=== PATIENT | female | born 1995 | race Caucasian/White ===

== ENCOUNTER → 2019-03-29 | Outpatient (CLI) | payer BC, OTHER ==
--- NOTE | 2019-03-31 08:37 | DIREP ---
PROCEDURE:OBSTETRICAL ULTRASOUND, 2nd AND 3rd TRIMESTER TECHNIQUE:Transabdominal ultrasound of the pelvic contents was performed. COMPARISON:[facility], US, US OB 2 3TRI DETAILED TRANSABD, 03/29/2019, 04:04 PM. INDICATIONS:Z3A.20 IUP @ 20 WKS FINDINGS: NUMBER:Schneider. POSITION:Cephalic AMNIOTIC FLUID VOLUME:MOSHE - 14.7 cm PLACENTA:Anterior. No evidence of placenta previa. CERVIX:3.1 cm length. The cervix appears closed. HEART RATE:139 bpm BIPARIETAL DIAMETER:5.2 cm (21 W 4 D), 91.9 percentile HEAD CIRCUMFERENCE:19.3 cm (21 W 4 D), 86.4 percentile ABD CIRCUMFERENCE:17.1 cm (22 W 0 D), 89.6 percentile FEMUR LENGTH:3.5 cm (21 W 1 D), 64.1 percentile ESTIMATED WEIGHT:436 gm (0 lb, 15oz), 96 percentile ULTRASOUND GA:21 W 4 D ULTRASOUND SANTOS:August 05, 2019 CLINICAL GA: 20 W 3 D CLINICAL SANTOS: August 13, 2019 ANATOMY CEREBELLUM:2.2 cm NUCHAL FOLD:6 mm CISTERNA MAGNA:5 mm LATERAL CEREBRAL VENTRICLES:6 mm CHOROID PLEXUS:No abnormality demonstrated. MIDLINE FALX:Visualized. CAVUM SEPTUM PELLUCIDUM:Normal. SPINE:Limited by positioning. No definite defect demonstrated. HEART:4 chamber. UPPER LIP:Intact. STOMACH:Visualized. KIDNEYS:No hydronephrosis. BLADDER:Visualized. UMBILICAL CORD INSERTION:Normal. CORD VESSEL NUMBER:3 vessel EXTREMITIES:4 extremities demonstrated. CONCLUSION: 1. Single intrauterine corresponding to an estimated gestational age of approximately 21 weeks 4 days per biometrics. This does reflect a slight discrepancy from the reported clinical gestational age which is within the acceptable limits for normal anatomic variation for this stage of . Estimated weight of 436 g. cardiac activity detected at 139 beats per minute. 2. anatomic evaluation as discussed above. No anatomic abnormality is identified. Nuchal fold thickness is at the upper acceptable limits. 3. Cephalic presentation. Anterior placenta. No evidence of previa. Normal MOSHE. Dictated by: [facility] Physician on 03/31/2019 at 08:10 AM
== END | disposition home or self-care (01) ==
LOC: RAD 15:12
PROVIDERS: ATTEND Obstetrics & Gynecology
DX: Z34.82 Encounter for supervision of other normal pregnancy, second trimester (principal); Z3A.21 21 weeks gestation of pregnancy
CPT/HCPCS: 76805

== ENCOUNTER 2019-08-10 12:46 | Inpatient (IN) | payer OTHER ==
[2019-08-10 13:30] VITALS: BP 124/77
[2019-08-10] MEDS ORDERED: LACTATED RINGERS 1,000 ML ONE ×2 (14:14→22:15)
[2019-08-10] MEDS ORDERED: OXYTOCIN 30 UNIT/NS 500 ML 500 ML IV ONE (14:15)
--- NOTE | 2019-08-10 15:16 | PCM.HP ---
OB-Chief Complaint and HPI Date/Diagnosis Date: Aug 10, 2019 Time: 15:14 Admit Dx: (1) Decreased movement ICD Codes: O36.8190 - Decreased movements, unspecified trimester, not applicable or unspecified SNOMED: 224171703 (2) 39 weeks gestation of ICD Codes: Z3A.39 - 39 weeks gestation of SNOMED: 18292680 Chief Complaint/History(PI) : 4 Para: 3 EDC: Aug 13, 2019 Reason for admission: other (decreased FM) Indication for induction: other Past Family/Social History Blood Type: A+ Rubella: immune RPR/VDRL: Negative GBS Status: Negative HBsAG: Negative Provider Note: 24 y/o @ 39.4 presented to L&D with complaints of decreased FM. FHT Cat 1. I discussed delivery with pt secondary to term gestation and decreased FM. Pt stated she would be more comfortable with moving forward with delivery as she would not want to go home and be concerned about her babies health. -We discussed plan of care with Pitocin augmentation and AROM A/ 24 y/o @ 39.4 Decreased FM GBS neg P/ Pitocin AROM Pain management prn Expect OB EXAM Physical Exam Vital Signs Date Time Temp Pulse Resp B/P (MAP) Pulse Ox O2 Delivery O2 Flow Rate FiO2 08/10/19 13:30 98.6 78 18 124/77 (93) 99 Room Air LABS Laboratory Tests Test 08/10/19 15:11 HIV-1 Antibody NON-REACTIVE (NONREACTIVE) HIV-2 Antibody NON-REACTIVE (NONREACTIVE) ALLISON BONILLA DO Aug 10, 2019 15:16
[2019-08-10 15:20] LABS: BASOPHIL % 0.3 % (0.0-0.2); EOSINOPHIL % 0.1 % (0.0-5.0); LYMPHOCYTES # 1.6 10^3/uL (1.0-4.8); LYMPHOCYTES % 13.5 % (24.0-44.0); MONOCYTES # 0.6 10^3/uL (0.3-0.8); MONOCYTES % 4.9 % (5.0-12.0); NEUTROPHIL # 9.3 10^3/uL (1.8-7.7); NEUTROPHILS % 80.5 % (41.0-85.0); RED CELL DISTRIBUTION WIDTH 12.8 % (11.5-14.5)
[2019-08-10] MEDS: LACTATED RINGERS 1,000 ML IV SCH ×2 (15:25→22:36)
[2019-08-10] MEDS ORDERED: OXYTOCIN 30 UNIT/NS 500 ML 500 ML ONE (15:26)
[2019-08-10] MEDS ORDERED: PHENERGAN IV PRN (15:30)
[2019-08-10] MEDS ORDERED: BICITRA PO ONE (15:30)
[2019-08-10] MEDS ORDERED: DEMEROL IV PRN (15:30)
[2019-08-10] MEDS ORDERED: ZOFRAN 4 MG/2 ML VIAL IV PRN (15:30)
[2019-08-10] MEDS ORDERED: XYLOCAINE SQ PRN (15:30)
[2019-08-10] MEDS ORDERED: SUBLIMAZE IV PRN (15:30)
[2019-08-10] MEDS ORDERED: PREN1TAB86 PO (19:05)
--- NOTE | 2019-08-10 20:27 | PRM.PN ---
Assessment/Plan Assessment/Plan Pt is doing well. Sitting on birthing ball. in room. Feeling ctx , but not too uncomfortable. Pitocin at 10 mu. TOCO CTX Q 2-3 min FHT-Cat 1 -Continue augmentation -Pain management ALLISON Gilbert DO Aug 10, 2019 20:26
[2019-08-10] MEDS ORDERED: STADOL ONE (22:31)
[2019-08-10] MEDS: STADOL IV PRN (22:36)
[2019-08-11] MEDS ORDERED: LACTATED RINGERS 1,000 ML ONE ×4 (01:48→13:44)
[2019-08-11] MEDS ORDERED: STADOL ONE (02:41)
[2019-08-11] MEDS: STADOL IV PRN (02:45)
[2019-08-11] MEDS ORDERED: NAROPIN 0.2% 100 ML BAG 100 ML ONE ×2 (04:31→11:56)
[2019-08-11] MEDS: LACTATED RINGERS 1,000 ML IV SCH ×2 (05:05→10:21)
[2019-08-11] MEDS ORDERED: LACTATED RINGERS 1,000 ML IV PRN (06:00)
[2019-08-11] MEDS ORDERED: EPHEDRINE SULFATE IV PRN (06:00)
[2019-08-11] MEDS ORDERED: LACTATED RINGERS 1,000 ML IV SCH (06:00)
[2019-08-11] MEDS ORDERED: NUBAIN IV PRN (06:00)
[2019-08-11] MEDS ORDERED: REGLAN IV PRN (06:00)
[2019-08-11] MEDS ORDERED: NARCAN IV PRN ×2 (06:00)
[2019-08-11] MEDS ORDERED: NAROPIN 0.2% 100 ML BAG 100 ML EPI SCH (08:30)
[2019-08-11] MEDS ORDERED: WATER ONE (08:42)
[2019-08-11] MEDS ORDERED: LIDOCAINE 1% VIAL ONE (08:43)
[2019-08-11] MEDS ORDERED: ZOFRAN ONE (09:21)
--- NOTE | 2019-08-11 11:03 | PRM.PN ---
Assessment/Plan Assessment/Plan AM rounds. Pt is comfortable with her epidural. SVE 5//-2. AROM clear fluid, IUPC placed. Will continue with augmentation. -T-Cat 1 ALLISON BONILLA DO Aug 11, 2019 11:03
[2019-08-11] MEDS ORDERED: NS 1000ML 1,000 ML ONE (13:38)
--- NOTE | 2019-08-11 13:38 | PRM.PN ---
Assessment/Plan Assessment/Plan Called to room for FHT decel with pushing. Jhony to 90's approx 3 min. Recovery to Cat 2. FHT tachy presented for approx 1 hr. Mom temp 99. Pitocin turned off. Pt cassidy 3-4 min. -Start amnio infusion -Allow for recovery -Re-check, if elevated will start abx. ALLISON BONILLA DO Aug 11, 2019 13:38
[2019-08-11] MEDS ORDERED: TYLENOL PO ONE (13:40)
[2019-08-11] MEDS ORDERED: AMPICILLIN SODIUM ONE (13:44)
[2019-08-11] MEDS ORDERED: NS 100ML 100 ML IV ONE (13:45)
[2019-08-11] MEDS ORDERED: TYLENOL PO STA (13:51)
[2019-08-11] MEDS ORDERED: BENADRYL IV PRN (14:00)
[2019-08-11] MEDS ORDERED: AMPICILLIN SODIUM 2 GM in NS 100ML 100 ML IV ONE (14:00)
[2019-08-11] MEDS ORDERED: AMPICILLIN SODIUM IV ONE (14:00)
[2019-08-11] MEDS ORDERED: NS 1000ML 1,000 ML IV ONE (14:00)
[2019-08-11] MEDS: NS IV SCH (15:46)
[2019-08-11] MEDS: GENTAMICIN SULFATE IV SCH (15:46)
[2019-08-11] MEDS ORDERED: AMPICILLIN IV SCH (16:00)
[2019-08-11] MEDS ORDERED: OXYTOCIN 30 UNIT/NS 500 ML 500 ML IV ONE (16:44)
[2019-08-11] MEDS: OXYTOCIN 30 UNIT/NS 500 ML 500 ML IV SCH ×2 (16:50→20:32)
--- NOTE | 2019-08-11 17:25 | PRM.DELNOT ---
Delivery Summary Delivery: Spont. Vaginal Delivery Assessment/Plan Assessment/Plan 39.5- over an intact perineum with epidural anesthesia. Viable male Apgars 8/9. Head delivered, loose nuchal cord reduced x 1. Spontaneous cry. Delayed cord clamp & cut, handed to mother. Spontaneous placenta. Cervix bruised and black, hemostatic. First degree midline vaginal laceration repaired with 2-0 Chromic. R hemostatic labial laceration with no repair. L labila laceration repaired with 3-0 Chromic and 4-0 Monocryl. Perineal abrasions noted. EBL 400 ml. Mother and infant stable. Name=ALLISON Lee DO Aug 11, 2019 17:25
[2019-08-11] MEDS: MOTRIN PO PRN (17:28)
[2019-08-11] MEDS: DERMOPLAST SPRAY TP PRN (17:29)
[2019-08-11] MEDS: TUCKS TP PRN (17:29)
[2019-08-11] MEDS ORDERED: MYLANTA PO PRN (17:30)
[2019-08-11] MEDS ORDERED: TYLENOL PO PRN (17:30)
[2019-08-11] MEDS ORDERED: LANOLIN HYDROUS TP PRN (17:30)
[2019-08-11] MEDS ORDERED: NORCO 5MG PO PRN (17:30)
[2019-08-11] MEDS ORDERED: AMPICILLIN 1 GM in NS 100ML 100 ML IV SCH (18:00)
[2019-08-11] MEDS: NORCO 5MG PO PRN (18:26)
[2019-08-11] MEDS ORDERED: VITAMIN K ONE (19:18)
[2019-08-11] MEDS ORDERED: ERYTHROMYCIN ONE (19:18)
[2019-08-11] MEDS: COLACE PO SCH (20:32)
[2019-08-11] MEDS ORDERED: NORCO 5MG PO ONE (23:52)
[2019-08-11] MEDS ORDERED: MOTRIN ONE (23:52)
[2019-08-12] MEDS: NORCO 5MG PO PRN ×4 (00:01→23:05)
[2019-08-12 05:47] LABS: BASOPHIL % 0.1 % (0.0-0.2); EOSINOPHIL # 0.1 10^3/uL (0.0-0.2); EOSINOPHIL % 0.4 % (0.0-5.0); LYMPHOCYTES % 9.6 % (24.0-44.0); MEAN CORP HGB 30.6 pg (26-34); MONOCYTES # 1.9 10^3/uL (0.3-0.8); MONOCYTES % 9.1 % (5.0-12.0); NEUTROPHIL # 16.6 10^3/uL (1.8-7.7); NEUTROPHILS % 80.4 % (41.0-85.0); RED CELL DISTRIBUTION WIDTH 12.7 % (11.5-14.5)
[2019-08-12] MEDS ORDERED: NORCO 5MG PO ONE ×3 (08:08→22:59)
[2019-08-12] MEDS ORDERED: MOTRIN ONE ×3 (08:08→22:58)
[2019-08-12] MEDS: MOTRIN PO PRN ×4 (08:15→23:05)
--- NOTE | 2019-08-12 11:13 | PRM.PN ---
Progress Note Subjective Date: Aug 12, 2019 Time: 11:09 Physician Notes: PPD # 1 Pt is doing well. Sitting up in bed visiting with family. States bleeding has improved. Using pericare and sitz baths. Duran cath in place. Ambulated in room and up to shower without issue. Denies s/s of anemia. Difficulty with nursing, supplemented x 2. VS-108/72,72,18,98%,98.3 ABD-firm fundus EX-Full ROM, NT A/ 24 y/o s/p PPD # 1 Decreased FM-IOL GBS neg Intrapartum infection-Leukocytosis, Afebrile Urinary retention Anemia-post procedural Nursing P/ Pain management Duran cat for 24 hr Repeat CBC-am Continue PP care Nursing assistance Monitor for s/s of anemia Iron daily Objective Review IO, Exams,& Results Vital Signs Date Time Temp Pulse Resp B/P (MAP) Pulse Ox O2 Delivery O2 Flow Rate FiO2 08/10/19 13:30 98.6 78 18 124/77 (93) 99 Room Air Intake and Output 08/12/19 07:00 Intake Total 1811 ml Balance 1811 ml Intake IV Total 1811 ml Laboratory Tests Test 08/10/19 15:11 08/12/19 05:35 White Blood Count 11.5 10^3/uL 20.7 10^3/uL Red Blood Count 3.78 10^6/uL 2.71 10^6/uL Hemoglobin 11.7 g/dL 8.3 g/dL Hematocrit 34.6 % 25.2 % Mean Corpuscular Volume 91.5 fL 93.0 fL Mean Corpuscular Hemoglobin 31.0 pg 30.6 pg Mean Corpuscular Hemoglobin Concent 33.8 g/dL 32.9 g/dL Red Cell Distribution Width 12.8 % 12.7 % Platelet Count 254 10^3/uL 193 10^3/uL Mean Platelet Volume 12.1 fL 11.6 fL Neutrophils (%) (Auto) 80.5 % 80.4 % Lymphocytes (%) (Auto) 13.5 % 9.6 % Monocytes (%) (Auto) 4.9 % 9.1 % Neutrophils # (Auto) 9.3 10^3/uL 16.6 10^3/uL Lymphocytes # (Auto) 1.6 10^3/uL 2.0 10^3/uL Monocytes # (Auto) 0.6 10^3/uL 1.9 10^3/uL Absolute Immature Granulocyte (auto 0.08 10^3 u/L 0.09 10^3 u/L Absolute Eosinophils (auto) 0.0 10^3/uL 0.1 10^3/uL Immature Granulocytes % 0.70 % 0.40 % Eosinophils % 0.1 % 0.4 % Basophils % 0.3 % 0.1 % Basophils # 0.0 10^3/uL 0.0 10^3/uL Rapid Plasma Reagin NONREACTIVE Hepatitis B Surface Antigen Negative HIV-1 Antibody NON-REACTIVE HIV-2 Antibody NON-REACTIVE Current Medications Medications (Trade) Dose Ordered Sig/Judith PRN Reason Start Time Stop Time Status Last Admin Acetaminophen (Tylenol) 650 mg Q4HR PRN PAIN 1 - 3 08/11/19 17:30 09/10/19 17:29 Acetaminophen/ Hydrocodone Bitart ([place] 5mg) 1 ea Q4HR PRN PAIN 4 - 6 08/11/19 17:30 09/10/19 17:29 08/12/19 08:16 Acetaminophen/ Hydrocodone Bitart ([place] 5mg) 2 ea Q4HR PRN PAIN 7 - 10 08/11/19 17:30 09/10/19 17:29 Benzocaine (Dermoplast [place]) To perineum PRN sut... PRN PRN Perineal Pain 08/11/19 17:30 09/10/19 17:29 08/11/19 17:29 Butorphanol Tartrate (Stadol) 2 mg Q4H PRN PAIN 4 - 6 08/10/19 15:30 09/09/19 15:29 08/11/19 02:45 Diphenhydramine HCl (Benadryl) 25 mg OT PRN ITCHING 08/11/19 14:00 09/10/19 13:59 Docusate Sodium (Colace) 100 mg HS 08/11/19 21:00 09/10/19 20:59 08/11/19 20:32 Ephedrine Sulfate (Ephedrine Sulfate) 50 mg PRN PRN SBP<90 unresolved by LR bolus 08/11/19 06:00 09/10/19 05:59 Fentanyl Citrate (Sublimaze) 100 mcg Q2H PRN PAIN 7 - 10 08/10/19 15:30 09/09/19 15:29 Gentamicin Sulfate 370 mg/ Sodium Chloride 109.25 ml @ 50 mls/hr Q24HRS 08/11/19 14:00 09/10/19 13:59 08/11/19 15:46 Ibuprofen (Motrin) 800 mg Q6HR PRN CRAMPING 08/11/19 17:30 09/10/19 17:29 08/12/19 08:15 Lanolin (Lanolin Hydrous) Apply to nipples PRN dry, pain... TID PRN pain/cracking 08/11/19 17:30 09/10/19 17:29 Meperidine HCl (Demerol) 50 mg Q4H PRN PAIN 7 - 10 08/10/19 15:30 09/09/19 15:29 Metoclopramide HCl (Reglan) 10 mg Q6HR PRN N/V unrelieved by Zofran 08/11/19 06:00 09/10/19 05:59 Nalbuphine HCl (Nubain) 5 mg Q4HR PRN Itching- AFTER DELIVERY ONLY! 08/11/19 06:00 09/10/19 05:59 Naloxone HCl (Narcan) 0.1 mg Q3HR PRN ITCHING 08/11/19 06:00 09/10/19 05:59 Naloxone HCl (Narcan) 0.2 mg PRN PRN Reduced Level of Consciousness 08/11/19 06:00 09/10/19 05:59 Ondansetron HCl (Zofran 4 Mg/2 ml Vial) 4 mg Q8H PRN NAUSEA / VOMITING 08/10/19 15:30 09/09/19 15:29 08/11/19 09:29 Promethazine HCl (Phenergan) 25 mg Q4H PRN NAUSEA / VOMITING 08/10/19 15:30 09/09/19 15:29 Ropivacaine 100 ml @ 0 mls/hr TITRATE 08/11/19 08:30 09/10/19 08:29 Witch Christy (Tucks) To perineal area ... PRN PRN Hemorrhoids 08/11/19 17:30 09/10/19 17:29 08/11/19 17:29 ALLISON Reyes DO Npo Except Ice Chips/Popsicles (08/10/19 15:02) Vs Q15min While In Labor (08/10/19 15:02) Temp Q1hr If Ruptured Membrane (08/10/19 15:02) Ringer's Solution,Lactated (Lactated Rin (08/10/19 15:30) Continuous Monitoring (08/10/19 15:02) Admit Orders (08/10/19 15:02) Meperidine Hcl/Pf (Demerol) (08/10/19 15:30) Ondansetron Hcl/Pf (Zofran 4 Mg/2 Ml Via (08/10/19 15:30) Butorphanol Tartrate (Stadol) (08/10/19 15:30) Fentanyl Citrate/Pf (Sublimaze) (08/10/19 15:30) Promethazine Hcl (Phenergan) (08/10/19 15:30) Miscellaneous (08/11/19 13:44) Diphenhydramine Hcl (Benadryl) (08/11/19 14:00) Gentamicin Sulfate (Gentamicin Sulfate) (08/11/19 14:00) Routine Vital Signs (08/11/19 17:14) Activity Advance As Tolerated (08/11/19 17:14) Ice Pk To Episiotomy/Tear (08/11/19 17:14) Sitz Bath Prn (08/11/19 17:14) Docusate Sodium (Colace) (08/11/19 21:00) Lanolin (Lanolin Hydrous) (08/11/19 17:30) Ibuprofen (Motrin) (08/11/19 17:30) Acetaminophen (Tylenol) (08/11/19 17:30) Hydrocodone/Acetaminophen ([place] 5mg) (08/11/19 17:30) Hydrocodone/Acetaminophen ([place] 5mg) (08/11/19 17:30) Mag Hydrox/Aluminum Hyd/Simeth (Mylanta) (08/11/19 17:30) Benzocaine/Lanolin/Aloe Vera (Dermoplast (08/11/19 17:30) Witch Christy (Tucks) (08/11/19 17:30) Regular Diet (08/12/19 Breakfast) Oxytocin/0.9 % Sodium Chloride (Oxytocin (08/11/19 17:30) Place Duran Catheter (08/12/19 08:50) ALLISON BONILLA DO Aug 12, 2019 11:13
[2019-08-12] MEDS ORDERED: FERROUS SULFATE PO STA (11:23)
[2019-08-12] MEDS ORDERED: FERROUS SULFATE PO ONE (11:33)
[2019-08-12] MEDS ORDERED: DERMOPLAST SPRAY TP ONE (12:02)
[2019-08-12] MEDS ORDERED: TUCKS ONE (12:02)
[2019-08-12] MEDS: DERMOPLAST SPRAY TP PRN (12:06)
[2019-08-12] MEDS: TUCKS TP PRN (12:06)
[2019-08-12] MEDS: NS IV SCH (15:41)
[2019-08-12] MEDS: GENTAMICIN SULFATE IV SCH (15:41)
[2019-08-12] MEDS ORDERED: COLACE PO ONE (19:33)
[2019-08-12] MEDS ORDERED: LANOLIN HYDROUS TP ONE (19:33)
[2019-08-12] MEDS: COLACE PO SCH (19:36)
[2019-08-13 05:34] LABS: BASOPHIL # 0.1 10^3/uL (0.0-0.1); BASOPHIL % 0.4 % (0.0-0.2); EOSINOPHIL # 0.2 10^3/uL (0.0-0.2); EOSINOPHIL % 1.6 % (0.0-5.0); LYMPHOCYTES % 17.6 % (24.0-44.0); MEAN CORP HGB 31.3 pg (26-34); MONOCYTES # 0.9 10^3/uL (0.3-0.8); MONOCYTES % 6.4 % (5.0-12.0); NEUTROPHILS % 73.3 % (41.0-85.0); PLATELET COUNT 170 10^3/uL (150-400); RED CELL DISTRIBUTION WIDTH 13.1 % (11.5-14.5)
[2019-08-13] MEDS ORDERED: FERROUS SULFATE PO ONE (08:25)
[2019-08-13] MEDS ORDERED: FERROUS SULFATE PO SCH (09:00)
--- NOTE | 2019-08-13 13:13 | PRM.PN ---
Progress Note Subjective Date: Aug 13, 2019 Time: 13:06 Physician Notes: PPD # 2 Pt is doing well and has no current complaints. Last took pain meds at midnight. [place] & Motrin. Nursing-milk has not come in yet. Ambulating without difficulty. Denies s/s of anemia. Urinating but states she feels like she can go again in 2- 5 min. Denies feeling pressure. Recently did a bladder scan and 500ml remained. I will have pt go to bathroom again and rescan after second urination. A/ 24 y/o s/p PPD # 2 Decreased FM-IOL GBS neg Intrapartum infection-Leukocytosis, Afebrile Urinary retention Anemia-post procedural Nursing P/ Pain management Duran cat for 24 hr Repeat [id number] Continue PP care Nursing assistance Monitor for s/s of anemia Iron daily Bladder scans after urination. If unable to adequately empty will remain in house for 1 more night. Objective Review IO, Exams,& Results Vital Signs Date Time Temp Pulse Resp B/P (MAP) Pulse Ox O2 Delivery O2 Flow Rate FiO2 08/10/19 13:30 98.6 78 18 124/77 (93) 99 Room Air Intake and Output 08/13/19 07:00 Intake Total 100 ml Balance 100 ml Intake IV Total 100 ml Laboratory Tests Test 08/12/19 05:35 08/13/19 05:19 White Blood Count 20.7 10^3/uL 13.7 10^3/uL Red Blood Count 2.71 10^6/uL 2.49 10^6/uL Hemoglobin 8.3 g/dL 7.8 g/dL Hematocrit 25.2 % 23.2 % Mean Corpuscular Volume 93.0 fL 93.2 fL Mean Corpuscular Hemoglobin 30.6 pg 31.3 pg Mean Corpuscular Hemoglobin Concent 32.9 g/dL 33.6 g/dL Red Cell Distribution Width 12.7 % 13.1 % Platelet Count 193 10^3/uL 170 10^3/uL Mean Platelet Volume 11.6 fL 11.4 fL Neutrophils (%) (Auto) 80.4 % 73.3 % Lymphocytes (%) (Auto) 9.6 % 17.6 % Monocytes (%) (Auto) 9.1 % 6.4 % Neutrophils # (Auto) 16.6 10^3/uL 10.0 10^3/uL Lymphocytes # (Auto) 2.0 10^3/uL 2.40 10^3/uL1 Monocytes # (Auto) 1.9 10^3/uL 0.9 10^3/uL Absolute Immature Granulocyte (auto 0.09 10^3 u/L 0.10 10^3 u/L Absolute Eosinophils (auto) 0.1 10^3/uL 0.2 10^3/uL Immature Granulocytes % 0.40 % 0.70 % Eosinophils % 0.4 % 1.6 % Basophils % 0.1 % 0.4 % Basophils # 0.0 10^3/uL 0.1 10^3/uL Current Medications Medications (Trade) Dose Ordered Sig/Judith PRN Reason Start Time Stop Time Status Last Admin Acetaminophen (Tylenol) 650 mg Q4HR PRN PAIN 1 - 3 08/11/19 17:30 09/10/19 17:29 Acetaminophen/ Hydrocodone Bitart ([place] 5mg) 1 ea Q4HR PRN PAIN 4 - 6 08/11/19 17:30 09/10/19 17:29 08/12/19 23:05 Acetaminophen/ Hydrocodone Bitart ([place] 5mg) 2 ea Q4HR PRN PAIN 7 - 10 08/11/19 17:30 09/10/19 17:29 Benzocaine (Dermoplast [place]) To perineum PRN sut... PRN PRN Perineal Pain 08/11/19 17:30 09/10/19 17:29 08/12/19 12:06 Butorphanol Tartrate (Stadol) 2 mg Q4H PRN PAIN 4 - 6 08/10/19 15:30 09/09/19 15:29 08/11/19 02:45 Diphenhydramine HCl (Benadryl) 25 mg OT PRN ITCHING 08/11/19 14:00 09/10/19 13:59 Docusate Sodium (Colace) 100 mg HS 08/11/19 21:00 09/10/19 20:59 08/12/19 19:36 Fentanyl Citrate (Sublimaze) 100 mcg Q2H PRN PAIN 7 - 10 08/10/19 15:30 09/09/19 15:29 Ferrous Sulfate (Ferrous Sulfate) 325 mg DAILY 08/13/19 09:00 09/12/19 08:59 08/13/19 08:36 Gentamicin Sulfate 370 mg/ Sodium Chloride 109.25 ml @ 50 mls/hr Q24HRS 08/11/19 14:00 09/10/19 13:59 08/12/19 15:41 Ibuprofen (Motrin) 800 mg Q6HR PRN CRAMPING 08/11/19 17:30 09/10/19 17:29 08/12/19 23:05 Lanolin (Lanolin Hydrous) Apply to nipples PRN dry, pain... TID PRN pain/cracking 08/11/19 17:30 09/10/19 17:29 08/12/19 19:36 Meperidine HCl (Demerol) 50 mg Q4H PRN PAIN 7 - 10 08/10/19 15:30 09/09/19 15:29 Ondansetron HCl (Zofran 4 Mg/2 ml Vial) 4 mg Q8H PRN NAUSEA / VOMITING 08/10/19 15:30 09/09/19 15:29 08/11/19 09:29 Promethazine HCl (Phenergan) 25 mg Q4H PRN NAUSEA / VOMITING 08/10/19 15:30 09/09/19 15:29 Witch Christy (Tucks) To perineal area ... PRN PRN Hemorrhoids 08/11/19 17:30 09/10/19 17:29 08/12/19 12:06 ALLISON Reyes DO Miscellaneous (08/11/19 13:44) Diphenhydramine Hcl (Benadryl) (08/11/19 14:00) Gentamicin Sulfate (Gentamicin Sulfate) (08/11/19 14:00) Routine Vital Signs (08/11/19 17:14) Activity Advance As Tolerated (08/11/19 17:14) Ice Pk To Episiotomy/Tear (08/11/19 17:14) Sitz Bath Prn (08/11/19 17:14) Docusate Sodium (Colace) (08/11/19 21:00) Lanolin (Lanolin Hydrous) (08/11/19 17:30) Ibuprofen (Motrin) (08/11/19 17:30) Acetaminophen (Tylenol) (08/11/19 17:30) Hydrocodone/Acetaminophen ([place] 5mg) (08/11/19 17:30) Hydrocodone/Acetaminophen ([place] 5mg) (08/11/19 17:30) Mag Hydrox/Aluminum Hyd/Simeth (Mylanta) (08/11/19 17:30) Benzocaine/Lanolin/Aloe Vera (Dermoplast (08/11/19 17:30) Witch Christy (Tucks) (08/11/19 17:30) Regular Diet (08/12/19 Breakfast) Oxytocin/0.9 % Sodium Chloride (Oxytocin (08/11/19 17:30) Place Duran Catheter (08/12/19 08:50) Miscellaneous (08/12/19 11:13) Ferrous Sulfate (Ferrous Sulfate) (08/13/19 09:00) ALLISON BONILLA DO Aug 13, 2019 13:13
[2019-08-13] MEDS ORDERED: MOTRIN ONE ×2 (14:04→19:27)
[2019-08-13] MEDS: MOTRIN PO PRN ×2 (14:11→19:31)
[2019-08-13] MEDS ORDERED: NORCO 5MG PO ONE (14:35)
[2019-08-13] MEDS: NORCO 5MG PO PRN (14:39)
[2019-08-13] MEDS ORDERED: COLACE PO ONE (19:27)
[2019-08-13] MEDS: COLACE PO SCH (19:30)
[2019-08-13] MEDS ORDERED: TUCKS ONE (19:58)
[2019-08-13] MEDS: TUCKS TP PRN (20:02)
--- NOTE | 2019-08-14 08:39 | PRM.PN ---
Progress Note Subjective Date: Aug 14, 2019 Time: 08:31 Physician Notes: PPD # 3 Pt is doing well, siting up in bed eating breakfast. Has mckenzie cath in. Was unable to empty bladder completely yesterday evening after multiple attempts. Was able to urinate approx 150ml, but had no urge. Once cath was placed she had 1200ml of urine released. Cath has been in place overnight. Will do bladder training with cath in today and plan to remove cath later this afternoon. If she is still unable to empty then we I will send her home with a leg bag. Procedure reviewed and patient and are in agreement of plan. Her milk has not come in yet. We plan to use electric breast pump while in house today. She has an electric pump at home. is having adequate urination and bowel movements. Mckenzie's pain is controlled and she is not having issues with anemia or ambulation. A/ 24 y/o s/p PPD # 3 Decreased FM-IOL GBS neg Intrapartum infection-Leukocytosis, Afebrile Urinary retention Anemia-post procedural Nursing P/ Pain management Bladder training with cath in place Continue PP care Nursing assistance Monitor for s/s of anemia Iron daily Plan on d/c to home today, if cath in place pt will RTO in 3 days Objective Review IO, Exams,& Results Vital Signs Date Time Temp Pulse Resp B/P (MAP) Pulse Ox O2 Delivery O2 Flow Rate FiO2 08/10/19 13:30 98.6 78 18 124/77 (93) 99 Room Air Laboratory Tests Test 08/13/19 05:19 White Blood Count 13.7 10^3/uL Red Blood Count 2.49 10^6/uL Hemoglobin 7.8 g/dL Hematocrit 23.2 % Mean Corpuscular Volume 93.2 fL Mean Corpuscular Hemoglobin 31.3 pg Mean Corpuscular Hemoglobin Concent 33.6 g/dL Red Cell Distribution Width 13.1 % Platelet Count 170 10^3/uL Mean Platelet Volume 11.4 fL Neutrophils (%) (Auto) 73.3 % Lymphocytes (%) (Auto) 17.6 % Monocytes (%) (Auto) 6.4 % Neutrophils # (Auto) 10.0 10^3/uL Lymphocytes # (Auto) 2.40 10^3/uL1 Monocytes # (Auto) 0.9 10^3/uL Absolute Immature Granulocyte (auto 0.10 10^3 u/L Absolute Eosinophils (auto) 0.2 10^3/uL Immature Granulocytes % 0.70 % Eosinophils % 1.6 % Basophils % 0.4 % Basophils # 0.1 10^3/uL Current Medications Medications (Trade) Dose Ordered Sig/Judith PRN Reason Start Time Stop Time Status Last Admin Acetaminophen (Tylenol) 650 mg Q4HR PRN PAIN 1 - 3 08/11/19 17:30 09/10/19 17:29 Acetaminophen/ Hydrocodone Bitart ([place] 5mg) 1 ea Q4HR PRN PAIN 4 - 6 08/11/19 17:30 09/10/19 17:29 08/13/19 14:39 Acetaminophen/ Hydrocodone Bitart ([place] 5mg) 2 ea Q4HR PRN PAIN 7 - 10 08/11/19 17:30 09/10/19 17:29 Benzocaine (Dermoplast [place]) To perineum PRN sut... PRN PRN Perineal Pain 08/11/19 17:30 09/10/19 17:29 08/12/19 12:06 Diphenhydramine HCl (Benadryl) 25 mg OT PRN ITCHING 08/11/19 14:00 09/10/19 13:59 Docusate Sodium (Colace) 100 mg HS 08/11/19 21:00 09/10/19 20:59 08/13/19 19:30 Ferrous Sulfate (Ferrous Sulfate) 325 mg DAILY 08/13/19 09:00 09/12/19 08:59 08/13/19 08:36 Ibuprofen (Motrin) 800 mg Q6HR PRN CRAMPING 08/11/19 17:30 09/10/19 17:29 08/13/19 19:31 Lanolin (Lanolin Hydrous) Apply to nipples PRN dry, pain... TID PRN pain/cracking 08/11/19 17:30 09/10/19 17:29 08/12/19 19:36 Witch Christy (Tucks) To perineal area ... PRN PRN Hemorrhoids 08/11/19 17:30 09/10/19 17:29 08/13/19 20:[address] Mckenzie Catheter (08/12/19 08:50) Miscellaneous (08/12/19 11:13) Ferrous Sulfate (Ferrous Sulfate) (08/13/19 09:00) ALLISON BONILLA DO Aug 14, 2019 08:39
--- NOTE | 2019-08-14 08:41 | PRM.DC ---
OB Discharge Summary Discharge Summary Date of Arrival on Unit: Aug 10, 2019 Reason for Visit: Decreased FM Discharge Date: Aug 14, 2019 Procedure(s) & Date(s) 08/11/19 Vitals,Diet,Meds & Activity Regular diet, activity as tolerated, pelvic rest, Iron & Motrin Complications: Other (intrapatrum infection, urinary retention) Medications: Motrin, Fe Discharge Diagnosis: Status Post Discharge Disposition: Stable Assessment & Plan A/ 24 y/o s/p PPD # 3 Decreased FM-IOL GBS neg Intrapartum infection-Leukocytosis, Afebrile Urinary retention Anemia-post procedural Nursing P/ Pain management Bladder training with cath in place Continue PP care Nursing assistance Monitor for s/s of anemia Iron daily Plan on d/c to home today, if cath in place pt will RTO in 3 days ALLISON BONILLA DO Aug 14, 2019 08:41
[2019-08-14] MEDS ORDERED: MOTRIN ONE (09:54)
[2019-08-14] MEDS: MOTRIN PO PRN (10:00)
[2019-08-14 18:09] VITALS: BP 127/75
== END 2019-08-14 19:40 | disposition home or self-care (01) | DRG 807 ==
LOC: LND 12:46
PROVIDERS: ADMIT Obstetrics & Gynecology; ATTEND Obstetrics & Gynecology
PROC: 10E0XZZ Delivery of Products of Conception, External Approach (ICD-10-PCS; principal; 2019-08-11)
PROC: 3E0R3BZ Introduction of Anesthetic Agent into Spinal Canal, Percutaneous Approach (ICD-10-PCS; 2019-08-11)
PROC: 00HU33Z Insertion of Infusion Device into Spinal Canal, Percutaneous Approach (ICD-10-PCS; 2019-08-11)
PROC: 0HQ9XZZ Repair Perineum Skin, External Approach (ICD-10-PCS; 2019-08-11)
PROC: 10907ZC Drainage of Amniotic Fluid, Therapeutic from Products of Conception, Via Natural or Artificial Opening (ICD-10-PCS; 2019-08-11)
DX: O36.8190 Decreased fetal movements, unspecified trimester, not applicable or unspecified (principal); Z37.0 Single live birth; O69.81X0 Labor and delivery complicated by cord around neck, without compression, not applicable or unspecified; O70.0 First degree perineal laceration during delivery; Z3A.39 39 weeks gestation of pregnancy; O99.03 Anemia complicating the puerperium; D64.9 Anemia, unspecified; R33.9 Retention of urine, unspecified; O90.89 Other complications of the puerperium, not elsewhere classified
CPT/HCPCS: 36415; 59025; 59610; 85025; 86318; 86592; 86900; 87340; G0378; J0290; J1580; J2001; J2405; J7030; J7050; J7120; J0585; J3430